=== PATIENT | male | born 1950 | race Caucasian/White ===

== ENCOUNTER → 2016-12-17 | Outpatient (CLI) | payer BC ==
[2016-12-17 10:34] LABS: Anisocytosis Slight; Basophils % (A) 0 %; CH 21.2; CHCM 28.7; Eosinophils # (A) 0.1 k/uL (0-0.7); Eosinophils % (A) 1 %; HCT 32.1 % (39.0-53.0); HDW 3.62; HGB 8.8 gm/dL (13.0-17.5); Hypochromasia Marked; Luc # (Auto) 0.14; Luc % (Auto) 3; Lymphocytes # (A) 1.6 k/uL (1.0-4.8); Lymphocytes % (A) 30 %; MCH 20.4 pg (25.0-35.0); MCV 74.1 fL (80.0-100.0); Mean Platelet Volume 6.7; Microcytosis Slight; Monocytes # (A) 0.5 k/uL (0-1.0); Monocytes % (A) 9 %; Neutrophils # (A) 3.1 k/uL (1.3-7.7); Neutrophils % (A) 58 %; Poikilocytosis Slight; RBC 4.33 m/uL (4.30-5.90); RDW 16.6 % (11.5-15.5); WBC 5.3 k/uL (3.8-10.6); WBC (Perox) 5.56
[2016-12-17 10:36] LABS: MCHC 27.5 g/dL (31.0-37.0)
[2016-12-17 11:57] LABS: ALT 25 U/L (21-72); AST 15 U/L (17-59); Alkaline Phosphatase 49 U/L (38-126); Anion Gap 10 mmol/L; Blood Urea Nitrogen 17 mg/dL (9-20); Calcium 8.9 mg/dL (8.4-10.2); Carbon Dioxide 28 mmol/L (22-30); Chloride 106 mmol/L (98-107); Glucose 89 mg/dL (74-99); Iron 27 ug/dL (49-181); Non-African American GFR(MDRD) >60 (>60 ml/min/1.73 sqM); Potassium 4.1 mmol/L (3.5-5.1); Sodium 144 mmol/L (137-145); Total Bilirubin 0.5 mg/dL (0.2-1.3); Total Protein 6.3 g/dL (6.3-8.2)
[2016-12-17 12:07] LABS: % Iron Saturation 6.6 % (20-50); Total Iron Binding Capacity 411 ug/dL (261-462)
== END | disposition home or self-care (01) ==
LOC: LABWHC1 09:33
PROVIDERS: ATTEND Internal Medicine Gastroenterology
DX: D50.8 Other iron deficiency anemias (principal); K52.89 Other specified noninfective gastroenteritis and colitis
CPT/HCPCS: 36415; 80053; 82728; 83540; 83550; 85025

== ENCOUNTER → 2017-01-24 | Outpatient (CLI) | payer BC ==
[2017-01-24 12:30] LABS: Appearance,Urine Clear (Clear); Bilirubin,Urine Negative (Negative); Glucose,Urine (UA) Negative (Negative); Ketones,Urine Negative (Negative); Leukocyte Esterase,Urine Negative (Negative); Nitrite,Urine Negative (Negative); Protein,Urine Negative (Negative); Specific Gravity,Urine 1.019 (1.001-1.035); UA Billing (MACRO vs. MICRO) CHEM; Urobilinogen,Urine <2.0 mg/dL (<2.0)
[2017-01-24 13:01] LABS: Anisocytosis Slight; Basophils % (A) 0 %; CH 21.8; CHCM 29.1; Eosinophils # (A) 0.1 k/uL (0-0.7); Eosinophils % (A) 1 %; HCT 38.4 % (39.0-53.0); HDW 3.01; HGB 10.9 gm/dL (13.0-17.5); Hypochromasia Marked; Luc # (Auto) 0.14; Luc % (Auto) 3; Lymphocytes # (A) 1.2 k/uL (1.0-4.8); Lymphocytes % (A) 22 %; MCH 21.4 pg (25.0-35.0); MCHC 28.4 g/dL (31.0-37.0); MCV 75.3 fL (80.0-100.0); Mean Platelet Volume 6.8; Microcytosis Moderate; Monocytes # (A) 0.3 k/uL (0-1.0); Monocytes % (A) 6 %; Neutrophils # (A) 3.7 k/uL (1.3-7.7); Neutrophils % (A) 68 %; RDW 18.4 % (11.5-15.5); WBC 5.5 k/uL (3.8-10.6); WBC (Perox) 5.54
[2017-01-24 13:23] LABS: ALT 25 U/L (21-72); AST 19 U/L (17-59); Alkaline Phosphatase 46 U/L (38-126); Anion Gap 11 mmol/L; Blood Urea Nitrogen 16 mg/dL (9-20); Calcium 9.2 mg/dL (8.4-10.2); Carbon Dioxide 28 mmol/L (22-30); Chloride 106 mmol/L (98-107); Cholesterol 138 mg/dL (<200); Glucose 85 mg/dL (74-99); HDL Cholesterol 59 mg/dL (40-60); Iron 20 ug/dL (49-181); Non-African American GFR(MDRD) >60 (>60 ml/min/1.73 sqM); Potassium 4.5 mmol/L (3.5-5.1); Sodium 145 mmol/L (137-145); Total Bilirubin 0.4 mg/dL (0.2-1.3); Total Protein 6.8 g/dL (6.3-8.2); Triglycerides 72 mg/dL (<150)
[2017-01-24 13:32] LABS: % Iron Saturation 4.7 % (20-50); Total Iron Binding Capacity 422 ug/dL (261-462)
[2017-01-24 14:11] LABS: Vitamin B12 595 pg/mL (239-931)
== END | disposition home or self-care (01) ==
LOC: LABWHC1 12:07
PROVIDERS: ATTEND Internal Medicine
DX: K51.90 Ulcerative colitis, unspecified, without complications (principal); D64.9 Anemia, unspecified; E78.5 Hyperlipidemia, unspecified; G62.9 Polyneuropathy, unspecified
CPT/HCPCS: 84439; 80061; 80053; 82607; 82728; 83540; 83550; 84443; 85025; 81003; 36415; G0103

== ENCOUNTER → 2017-07-04 | Outpatient (CLI) | payer SELFPAY ==
[2017-07-04 11:08] LABS: Anisocytosis Slight; Basophils % (A) 0 %; CH 29.5; Eosinophils # (A) 0.1 k/uL (0-0.7); Eosinophils % (A) 2 %; HCT 44.9 % (39.0-53.0); HDW 2.64; HGB 14.8 gm/dL (13.0-17.5); Luc # (Auto) 0.12; Luc % (Auto) 2; Lymphocytes # (A) 1.4 k/uL (1.0-4.8); Lymphocytes % (A) 23 %; MCH 28.7 pg (25.0-35.0); MCV 87.1 fL (80.0-100.0); Mean Platelet Volume 7.4; Monocytes # (A) 0.4 k/uL (0-1.0); Monocytes % (A) 6 %; Neutrophils % (A) 67 %; RBC 5.16 m/uL (4.30-5.90); RDW 16.2 % (11.5-15.5); WBC (Perox) 5.87
[2017-07-04 12:01] LABS: % Iron Saturation 19.7 % (20-50)
== END | disposition home or self-care (01) ==
LOC: LABWHC1 10:33
PROVIDERS: ATTEND Internal Medicine Gastroenterology
DX: D50.9 Iron deficiency anemia, unspecified (principal)
CPT/HCPCS: 36415; 82728; 83540; 83550; 85025

== ENCOUNTER → 2018-02-17 | Outpatient (CLI) | payer MEDICARE, OTHER ==
[2018-02-17 11:15] LABS: Basophils % (A) 0 %; Eosinophils # (A) 0.2 k/uL (0-0.7); Eosinophils % (A) 3 %; HCT 42.2 % (39.0-53.0); HGB 14.5 gm/dL (13.0-17.5); Lymphocytes # (A) 0.9 k/uL (1.0-4.8); Lymphocytes % (A) 17 %; MCH 30.2 pg (25.0-35.0); MCHC 34.3 g/dL (31.0-37.0); Mean Platelet Volume 6.8; Monocytes # (A) 0.3 k/uL (0-1.0); Monocytes % (A) 5 %; Neutrophils # (A) 3.9 k/uL (1.3-7.7); Neutrophils % (A) 72 %; Platelet Count 231 k/uL (150-450); RBC 4.79 m/uL (4.30-5.90); RDW 13.2 % (11.5-15.5); WBC 5.5 k/uL (3.8-10.6)
[2018-02-17 12:35] LABS: Erythrocyte Sedimentation Rate 8 mm/hr (0-15)
[2018-02-17 16:00] LABS: Iron Saturation 18.1 (15.00-50.00)
== END | disposition home or self-care (01) ==
LOC: LABWHC1 10:18
PROVIDERS: ATTEND Internal Medicine Gastroenterology
DX: K51.00 Ulcerative (chronic) pancolitis without complications (principal)
CPT/HCPCS: 36415; 83540; 83550; 85025; 85652; 86140

== ENCOUNTER → 2018-09-08 | Outpatient (CLI) | payer MEDICARE, OTHER ==
[2018-09-08 12:51] LABS: Basophils % (A) 0 %; Eosinophils # (A) 0.1 k/uL (0-0.7); Eosinophils % (A) 2 %; HCT 43.8 % (39.0-53.0); HGB 14.8 gm/dL (13.0-17.5); Lymphocytes # (A) 1.3 k/uL (1.0-4.8); Lymphocytes % (A) 23 %; MCH 30.7 pg (25.0-35.0); MCHC 33.8 g/dL (31.0-37.0); Mean Platelet Volume 6.9; Monocytes # (A) 0.4 k/uL (0-1.0); Monocytes % (A) 6 %; Neutrophils # (A) 3.7 k/uL (1.3-7.7); Neutrophils % (A) 66 %; Platelet Count 205 k/uL (150-450); RBC 4.81 m/uL (4.30-5.90); RDW 13.4 % (11.5-15.5); WBC 5.7 k/uL (3.8-10.6)
[2018-09-08 19:26] LABS: Iron Saturation 39.31 (15.00-50.00)
[2018-09-08 19:45] LABS: Folate, Serum 16.5 ng/mL
== END ==
LOC: LABWHC1 11:32
PROVIDERS: ATTEND Internal Medicine Gastroenterology
DX: D50.0 Iron deficiency anemia secondary to blood loss (chronic) (principal)
CPT/HCPCS: 36415; 82607; 82728; 82746; 83540; 83550; 84466; 85025

== ENCOUNTER → 2018-11-03 | Outpatient (CLI) | payer MEDICARE, OTHER ==
[2018-11-03 14:33] LABS: Basophils % (A) 0 %; Eosinophils # (A) 0.1 k/uL (0-0.7); Eosinophils % (A) 3 %; HCT 43.7 % (39.0-53.0); HGB 14.6 gm/dL (13.0-17.5); Lymphocytes # (A) 1.1 k/uL (1.0-4.8); Lymphocytes % (A) 27 %; MCH 30.6 pg (25.0-35.0); MCHC 33.4 g/dL (31.0-37.0); MCV 91.7 fL (80.0-100.0); Mean Platelet Volume 6.7; Monocytes # (A) 0.3 k/uL (0-1.0); Monocytes % (A) 6 %; Neutrophils # (A) 2.6 k/uL (1.3-7.7); Neutrophils % (A) 61 %; Platelet Count 215 k/uL (150-450); RBC 4.77 m/uL (4.30-5.90); WBC 4.2 k/uL (3.8-10.6)
[2018-11-03 18:58] LABS: Albumin 4.4 g/dL (3.80-4.90); Albumin/Globulin Ratio 2.44 (1.20-2.10); Anion Gap 6.3 mmol/L (4.00-12.00); Calcium 9.1 mg/dL (8.7-10.3); Carbon Dioxide 28.7 mmol/L (21.6-31.8); Globulin 1.8 g/dL (2.1-3.7); Potassium 4.6 mmol/L (3.5-5.5); Total Bilirubin 0.6 mg/dL (0.3-1.2); Total Protein 6.2 g/dL (6.2-8.2)
[2018-11-03 19:06] LABS: T4, Free (Free Thyroxine) 1.1 ng/dL (0.80-1.80)
== END | disposition home or self-care (01) ==
LOC: LABWHC1 12:34
PROVIDERS: ATTEND Internal Medicine
DX: Z00.00 Encounter for general adult medical examination without abnormal findings (principal); D64.9 Anemia, unspecified; E78.01 Familial hypercholesterolemia; K51.90 Ulcerative colitis, unspecified, without complications; K90.0 Celiac disease; Z12.5 Encounter for screening for malignant neoplasm of prostate
CPT/HCPCS: 84439; 80061; 80053; 84443; 85025; 36415; G0103

== ENCOUNTER 2021-10-12 16:49 | Observation (INO) | payer MEDICARE ==
[2021-10-12] MEDS ORDERED: SODIUM CHLORIDE 0.9% 500 ML 500 ML IV STA (16:59)
[2021-10-12 17:12] LABS: Glucose,Whole Blood 118 mg/dL (75-99)
[2021-10-12 17:36] LABS: Basophils % (A) 0 %; Eosinophils # (A) 0.1 k/uL (0-0.7); Eosinophils % (A) 2 %; HCT 44.7 % (39.0-53.0); HGB 14.9 gm/dL (13.0-17.5); Lymphocytes # (A) 0.8 k/uL (1.0-4.8); Lymphocytes % (A) 12 %; MCH 30.9 pg (25.0-35.0); MCHC 33.2 g/dL (31.0-37.0); Mean Platelet Volume 7.5; Monocytes # (A) 0.4 k/uL (0-1.0); Monocytes % (A) 5 %; Neutrophils # (A) 5.3 k/uL (1.3-7.7); Neutrophils % (A) 79 %; Platelet Count 216 k/uL (150-450); RBC 4.81 m/uL (4.30-5.90); RDW 12.7 % (11.5-15.5); WBC 6.7 k/uL (3.8-10.6)
--- NOTE | 2021-10-12 17:44 | CT ---
EXAMINATION TYPE: CT brain wo con for TPA DATE OF EXAM: 10/12/2021 COMPARISON: None HISTORY: Confusion. CT DLP: 1205.8 mGycm Automated exposure control for dose reduction was used. Images of the brain obtained without contrast. Ventricles have normal size. There is no mass effect nor midline shift. There is no sign of intracran ial hemorrhage. The calvarium is intact. There is normal aeration of the mastoid sinuses. IMPRESSION: Negative unenhanced head CT scan.
[2021-10-12 17:47] LABS: ALT 28 U/L (4-49); AST 29 U/L (17-59); African American GFR (CKD) >90 (>60 ml/min/1.73 sqM); Albumin 4.2 g/dL (3.5-5.0); Alkaline Phosphatase 57 U/L (38-126); Anion Gap 10 mmol/L; Blood Urea Nitrogen 17 mg/dL (9-20); Calcium 9.2 mg/dL (8.4-10.2); Carbon Dioxide 23 mmol/L (22-30); Chloride 105 mmol/L (98-107); Glucose 108 mg/dL (74-99); Non-African American GFR(CKD) 83 (>60 ml/min/1.73 sqM); Partial Thromboplastin Time 27.7 sec (22.0-30.0); Potassium 4.5 mmol/L (3.5-5.1); Prothrombin Time 10.5 sec (9.0-12.0); Sodium 138 mmol/L (137-145); Total Bilirubin 0.4 mg/dL (0.2-1.3); Total Protein 6.9 g/dL (6.3-8.2)
[2021-10-12] MEDS ORDERED: ASPIRIN 325 MG TAB PO STA (17:52)
[2021-10-12] MEDS ORDERED: SODIUM CHLORIDE 0.9% 500 ML 500 ML IV ONE (17:52)
--- NOTE | 2021-10-12 17:52 | ED ---
General Adult HPI - General Chief complaint: Neuro Symptoms/Deficit Stated complaint: Neurosymptoms Time Seen by Provider: 10/12/21 16:59 Source: patient, RN notes reviewed, old records reviewed Mode of arrival: ambulatory Limitations: no limitations - History of Present Illness Initial comments: 71-year-old male, history is limited. Patient was brought in by a friend after he was found to be acutely confused. He has repetitive speech. Patient was brought through walk in triage. The exact onset is unknown but he was felt to be normal prior to 1430. Patient denies complaints, he will answer questions appropriately but then begins to immediately have repetitive questioning. No history of drugs or alcohol. - Related Data Home Medications Medication Instructions Recorded Confirmed No Known Home Medications 10/12/21 10/12/21 Allergies Allergy/AdvReac Type Severity Reaction Status Date / Time gluten Allergy Rash/Hives/ Verified 10/12/21 18:52 Swelling wheat Allergy Rash/Hives/ Verified 10/12/21 18:52 Swelling Review of Systems ROS Statement: Those systems with pertinent positive or pertinent negative responses have been documented in the HPI. ROS Other: All systems not noted in ROS Statement are negative. Past Medical History Additional Past Medical History / Comment(s): colitis, diverticulosis History of Any Multi-Drug Resistant Organisms: None Reported Past Surgical History: Orthopedic Surgery Past Psychological History: No Psychological Hx Reported Smoking Status: Never smoker Past Alcohol Use History: None Reported Past Drug Use History: None Reported General Exam Limitations: no limitations General appearance: alert, in no apparent distress Head exam: Present: atraumatic, normocephalic Eye exam: Present: normal appearance, PERRL ENT exam: Present: normal exam, mucous membranes moist Neck exam: Present: normal inspection. Absent: tenderness, meningismus Respiratory exam: Present: normal lung sounds bilaterally, respiratory distress Cardiovascular Exam: Present: normal rhythm, bradycardia Extremities exam: Present: normal inspection Neurological exam: Present: alert, oriented X3 (He is oriented but slow to respond.), CN II-XII intact, motor sensory deficit (Numbness to the right side of the face, no motor deficit. Patient's speech is fluid but he has repetitive questioning and is unaware why he is in the emergency department) Psychiatric exam: Present: normal affect, normal mood Skin exam: Present: warm, dry, intact. Absent: cyanosis, diaphoretic Course Vital Signs 10/12/21 10/12/21 10/12/21 16:52 17:00 17:15 Temperature 98.7 F Pulse Rate 55 L 49 L 51 L Respiratory 20 18 18 Rate Blood Pressure 150/89 163/94 152/91 O2 Sat by Pulse 99 97 97 Oximetry 10/12/21 10/12/21 17:30 18:47 Temperature Pulse Rate 49 L 56 L Respiratory 18 18 Rate Blood Pressure 139/82 148/92 O2 Sat by Pulse 98 98 Oximetry - Reevaluation(s) Reevaluation #1: 10/12/21 4997 initial NIH is 24 sensory deficit right side of the face and mild confusion. I did discuss case with Dr. Wan, will review the images, no TPA at this time. EKG Findings - EKG Comments: EKG Findings:: Sinus bradycardia rate of 49, MT interval 152, QRS duration 82, QTC 390, no ST segment elevation Medical Decision Making - Medical Decision Making 71-year-old male who had presented with acute onset confusion, repetitive questioning. Patient had an initial NIH of 2. He has stable vitals. Head CT was performed which is negative for intracranial hemorrhage or mass effect. CT angiography was negative for acute occlusion or stenosis. Patient has normal CBC, normal CMP. He does improve while in the emergency department. He is amnestic to the events preceding. He's given IV fluids and aspirin in the emergency department he will be admitted for stroke rule out. Case discussed with Tonya mccann [facility] - Lab Data Result diagrams: 10/12/21 17:27 10/12/21 17:27 Lab Results 10/12/21 10/12/21 10/12/21 Range/Units 17:11 17:27 17:27 WBC 6.7 (3.8-10.6) k/uL RBC 4.81 (4.30-5.90) m/uL Hgb 14.9 (13.0-17.5) gm/dL Hct 44.7 (39.0-53.0) % MCV 93.0 (80.0-100.0) fL MCH 30.9 (25.0-35.0) pg MCHC 33.2 (31.0-37.0) g/dL RDW 12.7 (11.5-15.5) % Plt Count 216 (150-450) k/uL MPV 7.5 Neutrophils % 79 % Lymphocytes % 12 % Monocytes % 5 % Eosinophils % 2 % Basophils % 0 % Neutrophils # 5.3 (1.3-7.7) k/uL Lymphocytes # 0.8 L (1.0-4.8) k/uL Monocytes # 0.4 (0-1.0) k/uL Eosinophils # 0.1 (0-0.7) k/uL Basophils # 0.0 (0-0.2) k/uL PT 10.5 (9.0-12.0) sec INR 1.0 (<1.2) APTT 27.7 (22.0-30.0) sec Sodium (137-145) mmol/L Potassium (3.5-5.1) mmol/L Chloride (98-107) mmol/L Carbon Dioxide (22-30) mmol/L Anion Gap mmol/L BUN (9-20) mg/dL Creatinine (0.66-1.25) mg/dL Est GFR (CKD-EPI)AfAm (>60 ml/min/1.73 sqM) Est GFR (CKD-EPI)NonAf (>60 ml/min/1.73 sqM) Glucose (74-99) mg/dL POC Glucose (mg/dL) 118 H (75-99) mg/dL POC Glu Project Safety Manager ID Pooja Sosa Calcium (8.4-10.2) mg/dL Total Bilirubin (0.2-1.3) mg/dL AST (17-59) U/L ALT (4-49) U/L Alkaline Phosphatase (38-126) U/L Troponin I (0.000-0.034) ng/mL Total Protein (6.3-8.2) g/dL Albumin (3.5-5.0) g/dL 10/12/21 10/12/21 Range/Units 17:27 17:27 WBC (3.8-10.6) k/uL RBC (4.30-5.90) m/uL Hgb (13.0-17.5) gm/dL Hct (39.0-53.0) % MCV (80.0-100.0) fL MCH (25.0-35.0) pg MCHC (31.0-37.0) g/dL RDW (11.5-15.5) % Plt Count (150-450) k/uL MPV Neutrophils % % Lymphocytes % % Monocytes % % Eosinophils % % Basophils % % Neutrophils # (1.3-7.7) k/uL Lymphocytes # (1.0-4.8) k/uL Monocytes # (0-1.0) k/uL Eosinophils # (0-0.7) k/uL Basophils # (0-0.2) k/uL PT (9.0-12.0) sec INR (<1.2) APTT (22.0-30.0) sec Sodium 138 (137-145) mmol/L Potassium 4.5 (3.5-5.1) mmol/L Chloride 105 (98-107) mmol/L Carbon Dioxide 23 (22-30) mmol/L Anion Gap 10 mmol/L BUN 17 (9-20) mg/dL Creatinine 0.94 (0.66-1.25) mg/dL Est GFR (CKD-EPI)AfAm >90 (>60 ml/min/1.73 sqM) Est GFR (CKD-EPI)NonAf 83 (>60 ml/min/1.73 sqM) Glucose 108 H (74-99) mg/dL POC Glucose (mg/dL) (75-99) mg/dL POC Glu Project Safety Manager ID Calcium 9.2 (8.4-10.2) mg/dL Total Bilirubin 0.4 (0.2-1.3) mg/dL AST 29 (17-59) U/L ALT 28 (4-49) U/L Alkaline Phosphatase 57 (38-126) U/L Troponin I <0.012 (0.000-0.034) ng/mL Total Protein 6.9 (6.3-8.2) g/dL Albumin 4.2 (3.5-5.0) g/dL Critical Care Time Critical Care Time: Yes Total Critical Care Time: 35 Disposition Clinical Impression: Transient cerebral ischemia Disposition: ADMITTED IP TO THIS HOSP Condition: Stable Is patient prescribed a controlled substance at d/c from ED?: No Referrals: Radha Tong MD [Primary Care Provider] - 1-2 days Decision to Admit Reason: Admit from EC Decision Date: 10/12/21 Decision Time: 18:54
--- NOTE | 2021-10-12 17:58 | CT ---
EXAMINATION TYPE: CT angio head neck DATE OF EXAM: 10/12/2021 COMPARISON: None HISTORY: confusion CT DLP: 753 mGycm Automated exposure control for dose reduction was used. CONTRAST: Performed with IV Contrast, patient injected with 65 mL of Isovue 370. Images obtained from the aortic arch to the vertex of the brain with IV contrast. There are 3-D post processed images. There is normal branching pattern of the great vessels on the aortic arch. There is bilateral arteria l flow in the subclavian arteries. There is arterial flow in the common internal and external carotid arteries bilaterally. There is wide patency of the carotid artery bifurcations. There is arterial fl ow in both vertebral arteries. There is arterial flow in the vertebrobasilar artery system. There is no evidence of carotid or vertebral artery aneurysm or dissection. There is arterial flow in the anterior middle and posterior cerebral arteries. There is no mass effec t. There is no evidence of intracranial arterial stenosis. There is no evidence of intracranial aneur ysm or neovascularity. There is normal enhancement of the venous sinuses. IMPRESSION: Negative CT angiogram of the neck. Negative CT angiogram of the brain.
--- NOTE | 2021-10-12 18:39 | XR ---
EXAMINATION TYPE: XR chest 2V DATE OF EXAM: 10/12/2021 COMPARISON: 02/13/2021 HISTORY: Altered mental status TECHNIQUE: 2 views FINDINGS: Heart and mediastinum are normal. Lungs are clear. Diaphragm is normal. Bony thorax is inta ct. There are chest leads. IMPRESSION: Normal chest. No change.
--- NOTE | 2021-10-12 19:36 | US ---
EXAMINATION TYPE: US carotid duplex BILAT DATE OF EXAM: 10/12/2021 COMPARISON: CTA same day CLINICAL HISTORY: Stenosis. Altered mental status EXAM MEASUREMENTS: RIGHT: Peak Systolic Velocity (PSV) cm/sec ----- Right CCA: 65.8 ----- Right ICA: 83.4 ----- Right ECA: 111.2 ICA/CCA ratio: 1.3 RIGHT: End Diastole cm/sec ----- Right CCA: 16.4 ----- Right ICA: 15.3 ----- Right ECA: 14.1 LEFT: Peak Systolic Velocity (PSV) cm/sec ----- Left CCA: 74.4 ----- Left ICA: 87.9 ----- Left ECA: 116.1 ICA/CCA ratio: 1.2 LEFT: End Diastole cm/sec ----- Left CCA: 17.1 ----- Left ICA: 19.3 ----- Left ECA: 14.4 VERTEBRALS (direction of flow): Right Vertebral: Antegrade Left Vertebral: Antegrade Rhythm: Normal No significant stenosis seen IMPRESSION: There is antegrade flow in the vertebral arteries. The images and measurements suggest less than 10% stenosis in both internal carotid arteries. Criteria for Assigning % of Stenosis / Diameter reduction (Estimation based on the indirect measurements of the internal carotid artery velocities (ICA PSV). 1. Normal (no stenosis)=ICA PSV < 125 cm/s: ratio < 2.0: ICA EDV<40 cm/s. 2. Less than 50% stenosis=ICA PSV < 125 cm/s: ratio < 2.0: ICA EDV<40 cm/s. 3. 50 to 69% stenosis=ICA PSV of 125 to 230 cm/s: ration 2.0 ? 4.0: ICA EDV 40-100 cm/s. 4. Greater than 70% stenosis to near occlusion= ICA PSV > 230 cm/s: ratio > 4.0: ICA EDV > 100 cm/s. 5. Near occlusion= ICA PSV velocities may be low or undetectable: variable ratio and ICA EDV. 6. Total occlusion=unable to detect flow.
[2021-10-12] MEDS ORDERED: ATORVASTATIN 80 MG TAB PO SCH (21:00)
[2021-10-13] MEDS: SODIUM CHLORIDE 0.9% 1,000 ML IV SCH ×3 (01:27→15:44)
[2021-10-13] MEDS ORDERED: ASPIRIN 325 MG TAB PO SCH (09:00)
[2021-10-13 09:43] LABS: Chol/HDL Ratio 3.73 Ratio; LDL Cholesterol,Calculated 89.8 mg/dL (0.0-131.0)
--- NOTE | 2021-10-13 11:37 | P.CNNES ---
History of Present Illness Consult date: 10/13/21 Requesting physician: Diogo Pryor Reason for Consult: tia History of Present Illness: This is a 71-year-old gentleman with medical history of ulcerative colitis who presented to the emergency department on 10/12/2021 because of confusion. Some of the history is obtained from medical record. She stated that yesterday he was talking to a friend over the phone and his friend told him that the he sounded off and seemed confused. Then the friend that came over and the brought the patient to the emergency department. Patient states that he does not recall what transpired that yesterday all he remembers is he was talking to a friend then the next thing that he remembers is a being in the emergency department. He does not recall if he had any the slurring the speech, headaches, any focal weakness or numbness. Currently the patient feels he is back to baseline. He denies of any headaches, nausea, vomiting. He denies any history of stroke or seizure or TIA in the past. Denies being under any stress recently. She denies of any tobacco use, alcohol use or any illicit drug use. Per ED documentation, the patient the was answered questions appropriately but began to immediately have repetitive questioning. She is not on any at antiplatelets or statins. He states that the in the past his hemoglobin was as low as 8.0. As stated above patient denies any history of seizures. He said that he is ad opted and does not know about family history of seizure. some of the workup in the hospital consisted of: Initial vital signs: Blood pressure of 150/89, heart rate of 55, respiratory of 20, temperature of 98.7 Fahrenheit oral and pulse ox of 99% room air. CBC with differential is unremarkable. Initial POC glucose is 118, sodium is 138, creatinine is 0.94, AST of 29, ALT of 28, calcium is 9.2. Lipid panel is a triglyceride 122, cholesterol 156, LDL of 89 and HDL 41. Marquez virus PCR was not detected. CT of the head is reported as negative unenhanced head CT scan. CT angiography of the head and neck was reported as negative. Carotid duplex was reported as there is antegrade flow in the vertebral arteries. Images and measurements suggest less than 10% stenosis in both internal carotid arteries. The patient had acute onset confusion and repetitive questioning. The ED the patient had NIH of a 2 (sensory deficit on right side face and mild confusion). Stroke code was activated and the ED team spoke with the stroke team. Patient symptoms resolved and no IV TPA as as a result. Review of Systems Review of system: The 12 point system was reviewed and apparent positive and negative per HPI. Past Medical History Additional Past Medical History / Comment(s): colitis, diverticulosis History of Any Multi-Drug Resistant Organisms: None Reported Past Surgical History: Orthopedic Surgery Past Anesthesia/Blood Transfusion Reactions: No Reported Reaction Past Psychological History: No Psychological Hx Reported Smoking Status: Never smoker Past Alcohol Use History: None Reported Past Drug Use History: None Reported Medications and Allergies Home Medications Medication Instructions Recorded Confirmed Type No Known Home Medications 10/12/21 10/12/21 History Allergies Allergy/AdvReac Type Severity Reaction Status Date / Time gluten Allergy Rash/Hives/ Verified 10/12/21 18:52 Swelling wheat Allergy Rash/Hives/ Verified 10/12/21 18:52 Swelling Physical Examination - Vital Signs Vital Signs: Vital Signs Temp Pulse Pulse Resp BP BP Pulse Ox 10/13/21 07:00 97.5 F L 51 L 16 126/69 96 10/13/21 02:00 97.5 F L 55 L 18 156/91 98 10/12/21 18:47 56 L 18 148/92 98 10/12/21 17:30 49 L 18 139/82 98 10/12/21 17:15 51 L 18 152/91 97 10/12/21 17:00 49 L 18 163/94 97 10/12/21 16:52 98.7 F 55 L 20 150/89 99 Intake and Output 10/12/21 10/13/21 10/13/21 22:59 06:59 14:59 Intake Total 354 Balance 354 Intake: Oral 354 Other: # Voids 1 Weight 102.512 kg 102.512 kg GENERAL: The patient is lying in bed and is not in acute distress. CHEST: The heart rate is regular rate rhythm. No murmurs to auscultation. No carotid bruit bilaterally. LUNG: Clear to auscultation bilaterally no wheezing noted throughout. Not labored breathing. ABDOMEN/GI: Bowel sounds present in all 4 quadrants. No tenderness to palpation throughout. NEUROLOGICAL: Higher mental function: The patient is awake, alert, oriented to self, place and time. Able to name objects (pen, watch, glasses). Patient is following comm ands. No aphasia and no neglect. Cranial nerves: The pupils are round, equal and reactive to light and accommodation. Visual campos are full to confrontation throughout. Extraocular movement is intact no nystagmus is noted. Facial sensation is normal to touch throughout. The facial strength is normal throughout. Hearing is normal bilaterally to hand rub. Tongue is midline and moved [id number] without any difficulty. No dysarthria is noted. Shoulder shrug is normal bilaterally. Motor: Gait is normal with normal arm swings. The strength is 5 over 5 throughout. Normal tone and bulk. Cerebellum: Normal finger to nose heel to aguirre bilaterally. Sensation: Sensation is normal to touch throughout. Reflexes (right/left): 2+ throughout. Plantars are downgoing bilaterally. Results - Laboratory Findings CBC and BMP: 10/12/21 17:27 10/12/21 17:27 Abnormal Lab Findings: Abnormal Labs 10/12/21 10/12/21 10/12/21 17:11 17: 17:27 Lymphocytes # 0.8 L Glucose 108 H POC Glucose (mg/dL) 118 H Assessment and Plan Assessment: Transient episode of confusion and per ED right facial numbness. Possible TIA (but not definitive. Especially since the patient does not recall what transpired) History of ulcerative colitis Plan: * In the ED the patient was given aspirin 325 once and was started on aspirin 325 daily and I decreased especially with his history of Ulcerative Colitis and history anemia (as low as 8.0). Will not start dual antiplatelets because of his history of anemia. I will decrease the Lipitor from 80mg to 20 mg qhs. * Ordered MRI Brain w/ and w/o Urgently * 2-D echo is ordered and is pending * PT, OT and WATERMELON INSPECTOR are consulted. * Ordered TSH level, vitamin B12, folate. * Continue neuro checks * Patient is on cardiac monitoring * Will consider Routine EEG as outpatient and can be done as outpatient (if still patient is here by Friday then will proceed as inpatient). * We'll defer the rest of medical management to the primary team. * Upon discharge the patient needs to follow-up with a neurologist as an outpatient within 1-2 weeks. * For DVT prophylaxis start the patient on the subcu heparin 5000 units every 12 hours. The plan is discussed with the patient and his nurse. Thank you for the consultation. Darrell Basha, M.D. Neuro-hospitalist Time with Patient: Greater than 30
--- NOTE | 2021-10-13 13:51 | ECHOF ---
Referral Reason:Thrombus MEASUREMENTS -------- HEIGHT: 182.9 cm WEIGHT: 102.5 kg BP: IVSd: 1.3 cm (0.6 - 1.1) LVIDd: 3.3 cm (3.9 - 5.3) LVPWd: 1.6 cm (0.6 - 1.1) EDV(Teich): 43 ml IVSs: 1.7 cm LVIDs: 2.2 cm LVPWs: 1.7 cm %IVS Thck: 26 % ESV(Teich): 17 ml EF(Teich): 60 % %FS: 31 % SV(Teich): 26 ml Ao Diam: 3.7 cm (2.0 - 3.7) LA Diam: 2.8 cm (2.7 - 3.8) AV Cusp: 2.3 cm (1.5 - 2.6) EPSS: 0.9 cm MV E Mark: 0.51 m/s MV DecT: 326 ms MV Dec [place]: 1.6 m/s MV A Mark: 0.65 m/s MV E/A Ratio: 0.78 MV PHT: 94 ms MR Vmax: 1.15 m/s MR maxP.33 mmHg AV Vmax: 1.33 m/s AV maxP.04 mmHg TR Vmax: 1.13 m/s TR maxP.09 mmHg RAP: 5.00 mmHg RVSP: 10.09 mmHg MV EF SLOPE: 89.33 mm/s (70 - 150) MV EXCURSION: 14.43 mm (> 18.000) FINDINGS -------- This was a technically difficult study with suboptimal views. The left ventricular size is normal. There is moderate concentric left ventricular hypertrophy. O verall left ventricular systolic function is normal with, an EF between 55 - 60 %. The right ventricle is normal in size. The left atrial size is normal. The right atrial size is normal. Lumason used The aortic valve is trileaflet and appears structurally normal. The mitral valve is normal. There is trace mitral regurgitation. The tricuspid valve appears structurally normal. Trace tricuspid regurgitation present. Right gurinder tricular systolic pressure is normal at < 35 mmHg. There is no pulmonic regurgitation present. The aortic root size is normal. IVC Not well visulized. There is no pericardial effusion. CONCLUSIONS -------- 1. The left ventricular size is normal. 2. There is moderate concentric left ventricular hypertrophy. 3. Overall left ventricular systolic function is normal with, an EF between 55 - 60 %. 4. There is trace mitral regurgitation. 5. Trace tricuspid regurgitation present. 6. There is no pericardial effusion. BOX BLANK MACHINE OPERATOR: Susie Ovalle RDCS
[2021-10-13 20:04] VITALS: RESP 18
[2021-10-13] MEDS ORDERED: ATORVASTATIN 20 MG TAB PO SCH (21:00)
[2021-10-13] MEDS ORDERED: ATORVASTATIN 40 MG TAB PO SCH (21:00)
[2021-10-13] MEDS: HEPARIN SODIUM,PORCINE/PF 5,000 UNIT/0.5 ML SYRINGE SQ SCH (21:21)
[2021-10-14] MEDS: SODIUM CHLORIDE 0.9% 1,000 ML IV SCH ×3 (01:00→12:06)
[2021-10-14] MEDS: HEPARIN SODIUM,PORCINE/PF 5,000 UNIT/0.5 ML SYRINGE SQ SCH (08:00)
[2021-10-14 08:49] VITALS: BP 149/81; PULSE 52; TEMP 97.4
[2021-10-14] MEDS ORDERED: ASPIRIN 81 MG PO SCH (09:00)
--- NOTE | 2021-10-14 11:33 | P.PN ---
Subjective Progress Note Date: 10/14/21 The patient is seen at bedside and denies any neurological problems. He states he is doing well. Objective - Vital Signs Vital signs: Vital Signs Temp 97.4 F L 10/14/21 07:00 Pulse 52 L 10/14/21 07:00 Resp 18 10/14/21 07:00 BP 149/81 10/14/21 07:00 Pulse Ox 99 10/14/21 07:00 Intake & Output 10/13/21 10/14/21 10/14/21 18:59 06:59 18:59 Intake Total 1372 450 Balance 1372 450 Intake: Intake, IV Titration 900 450 Amount Sodium Chloride 0.9% 1, 900 450 000 ml @ 100 mls/hr IV . Q10H [facility] Rx#:[id number] Oral 472 Other: # Voids 4 - Exam GENERAL: The patient is lying in bed and is not in acute distress. NEUROLOGICAL: Higher mental function: The patient is awake, alert, oriented to self, place and time. Able to name objects (pen, watch, glasses). Patient is following commands. No aphasia and no neglect. Cranial nerves: The pupils are round, equal and reactive to light and accommodation. Visual campos are full to confrontation throughout. Extraocular movement is intact no nystagmus is noted. Facial sensation is normal to touch throughout. The facial strength is normal throughout. Hearing is normal bilaterally to hand rub. Tongue is midline and moved [id number] without any difficulty. No dysarthria is noted. Shoulder shrug is normal bilaterally. Motor: Gait is normal with normal arm swings. The strength is 5 over 5 throughout. Normal tone and bulk. Cerebellum: Normal finger to nose heel to aguirre bilaterally. Sensation: Sensation is normal to touch throughout. Reflexes (right/left): 2+ throughout. Plantars are downgoing bilaterally. WORK-UP: Lipid panel is a triglyceride 122, cholesterol 156, LDL of 89 and HDL 41. Marquez virus PCR was not detected. CT of the head is reported as negative unenhanced head CT scan. CT angiography of the head and neck was reported as negative. Carotid duplex was reported as there is antegrade flow in the vertebral art eries. Images and measurements suggest less than 10% stenosis in both internal carotid arteries. 2D echo: Moderate concentrict left ventricular hypertrophy. EF of 55-60%. The left atrial size is normal. - Labs CBC & Chem 7: 10/12/21 17:27 10/12/21 17:27 Assessment and Plan Assessment: Transient episode of confusion and per ED right facial numbness. Possible TIA (but not definitive. Especially since the patient does not recall what transpired) History of ulcerative colitis Plan: * Continue ASA 81mg daily. Will avoid higher dose of ASA or dual antiplatelets because of his history of Ulcerative Colitis and history anemia (as low as 8.0). Continue Lipitor 20 mg qhs. * Pending MRI Brain w/ and w/o Urgently * PT, OT and BIZTALK ADMINISTRATOR are consulted. * TSH level, vitamin B12, folate are pending. * Continue neuro checks * Patient is on cardiac monitoring * Will consider Routine EEG as outpatient and can be done as outpatient (if still patient is here by Friday then will proceed as inpatient). * We'll defer the rest of medical management to the primary team. * Upon discharge the patient needs to follow-up with a neurologist as an outpatient within 1-2 weeks. * For DVT prophylaxis on the subcu heparin 5000 units every 12 hours. Patient wants to go home and get those test as outpatient. Therefore ordered paper script of MRI Brain and routine EEG and handed scripts to the nurse. I wi ll give another copy of routine EEG script to our mri technician to coordinate it. Patient was notified to follow-up with a neurologist and his PCP within 1-2 weeks. The plan is discussed with the patient and his nurse. Patient is clear from neurological perspective. Darrell Joyce M.D. Neuro-hospitalist Time with Patient: Less than 30
--- NOTE | 2021-10-14 16:49 | P.HPIM ---
History of Present Illness H&P Date: 10/13/21 Chief Complaint: Altered mental status Patient is a 71-year-old male without significant past medical history presents to ER due to altered mental status. Patient was brought to the hospital by his friend after he was found acutely confused. Patient was talking to his pain over the phone and he was having a repetitive speech. Onset of symptoms around 1430. Otherwise patient denied any chest pain. No palpitations. No dizziness or lightheadedness. No slurred speech. No focal weakness. No bowel or bladder incontinence. No seizure activity noted. Denied other complaints. Patient is back to his baseline in the ER. Laboratory showed WBC 6.7 him being 14.9 and platelets 216, sodium 138 potassium 4.5 chloride 105 bicarb is 23 BUN 17 and creatinine 0.94 and blood sugar is 108 Liver enzymes are not elevated troponin 1 negative and LDL is 89.8 COVID-19 PCR not detected. Review of Systems Constitutional: Patient denies any fever or chills . No generalized weakness or weight loss. Abdomen: Patient denied nausea vomiting and diarrhea and abdominal pain. Cardiovascular: Patient denies any chest pain or short of breath no palpitations. Respiratory: patient denied any cough is from production. No shortness of breath Neurologic: Patient denied any numbness or tingling headache. Musculoskeletal: Patient denies any complaints of joint swelling or deformity. Skin: Negative Psychiatric: Negative Endocrine: No heat or cold intolerance. No recent weight gain. Genitourinary: No dysuria or hematuria. All other 14 point ROS negative except the above Past Medical History Additional Past Medical History / Comment(s): colitis, diverticulosis History of Any Multi-Drug Resistant Organisms: None Reported Past Surgical History: Orthopedic Surgery Past Anesthesia/Blood Transfusion Reactions: No Reported Reaction Past Psychological History: No Psychological Hx Reported Smoking Status: Never smoker Past Alcohol Use History: None Reported Past Drug Use History: None Reported Medications and Allergies Home Medications Medication Instructions Recorded Confirmed Type Aspirin 81 mg PO DAILY #30 tab 10/14/21 Rx Atorvastatin [Lipitor] 20 mg PO HS #30 tab 10/14/21 Rx Allergies Allergy/AdvReac Type Severity Reaction Status Date / Time gluten Allergy Rash/Hives/ Verified 10/12/21 18:52 Swelling wheat Allergy Rash/Hives/ Verified 10/12/21 18:52 Swelling Physical Exam Vitals: Vital Signs Temp Pulse Resp BP Pulse Ox 10/14/21 07:00 97.4 F L 52 L 18 149/81 99 10/14/21 01:59 97.7 F 48 L 18 119/66 96 10/13/21 20:04 97.6 F 49 L 18 122/72 97 10/13/21 19:59 18 10/13/21 15:00 98.2 F 62 20 140/68 95 Intake and Output 10/13/21 10/14/21 10/14/21 22:59 06:59 14:59 Intake Total 450 480 Balance 450 480 Intake: Intake, IV Titration 450 Amount Sodium Chloride 0.9% 1, 450 000 ml @ 100 mls/hr IV . Q10H [facility] Rx#:[id number] Oral 480 Other: # Voids 2 4 PHYSICAL EXAMINATION: Patient is lying in the bed comfortably, no acute distress, awake alert and oriented.. HEENT: Normocephalic. Neck is supple. Pupils reactive. Nostrils clear. Oral cavity is moist. Neck reveals no JVD, carotid bruits, or thyromegaly. CHEST EXAMINATION: Trachea is central. Symmetrical expansion. Lung campos clear to auscultation and percussion. CARDIAC: Normal S1, S2 with no gallops. No murmurs ABDOMEN: Soft. Bowel sounds normal. No organomegaly. No abdominal bruits. Extremities: reveal no edema. No clubbing or cyanosis Neurologically awake, alert, oriented x3 with well-coordinated movements. No focal deficits noted Skin: No rash or skin lesions. Psychiatric: Coperative. Nonsuicidal Musculoskeletal: No joint swelling or deformity. Normal range of motion. Results CBC & Chem 7: 10/12/21 17:27 10/12/21 17:27 Thrombosis Risk Factor Assmnt - DVT/VTE Prophylaxis DVT/VTE Prophylaxis: Pharmacologic Prophylaxis ordered - Choose All That Apply Any of the Below Risk Factors Present?: No Each Risk Factor Represents 2 Points: Age 61-74 years Other congenital or acquired thrombophilia - If yes, enter type in comment: No Thrombosis Risk Factor Assessment Total Risk Factor Score: 2 Thrombosis Risk Factor Assessment Level: Low Risk Assessment and Plan Assessment: Acute transient altered mental status with repetitive speech.. Possible TIA. Right facial numbness resolved now. History of ulcerative colitis currently not on any medications Plan: Patient will be be continued on telemetry monitoring. Continue with neuro checks. Neurologic workup including MRI of the brain, 2-D echocardiogram, TSH B12 and folate levels was ordered. A1c was ordered. Continue to follow closely. Neurology was consulted.
== END 2021-10-14 14:40 | disposition home or self-care (01) ==
LOC: EC 16:49 → 1SOBS 18:50 → 6NMEDSUR 20:48
PROVIDERS: ADMIT Hospitalist; ATTEND Hospitalist
DX: R41.3 Other amnesia (principal); R20.0 Anesthesia of skin; K51.90 Ulcerative colitis, unspecified, without complications; R41.0 Disorientation, unspecified; K57.90 Diverticulosis of intestine, part unspecified, without perforation or abscess without bleeding; R00.0 Tachycardia, unspecified; Z20.822 Contact with and (suspected) exposure to COVID-19; Z79.82 Long term (current) use of aspirin; Z79.899 Other long term (current) drug therapy; Z91.018 Allergy to other foods
CPT/HCPCS: 96360; 96361 ×2; 96372 ×2; 99291; 36415; 93005; 97161; 80061; 80053; 84443; 82607; 82746; 84484; 85025; 85610; 85730; 83036; 87635; 71046; 93880; 70496; 70450; 70498; G0378 ×4; C8929; Q9950; Q9967; J1644 ×2; 93306

== ENCOUNTER → 2024-09-13 | Outpatient (CLI) | payer MEDICARE ==
--- NOTE | 2024-09-13 10:03 | CT ---
EXAMINATION TYPE: CT iac wo con CT DLP: 150 mGycm, Automated exposure control for dose reduction was used. DATE OF EXAM: 09/13/2024 9:44 AM INDICATION: Patient age: Male; 74 years old; Reason for study: H93.19 TINNITUS UNSPECIFIE EAR H91.90 HEARING LOSS; [facility]. COMPARISON: 10/12/2021. TECHNIQUE: Multiple thin axial images were obtained through the temporal bones and internal auditory canals. Additional coronal reformatted images were obtained. No IV contrast was utilized. CT Contrast: mL of , none. FINDINGS: Right Temporal Bone: External Ear: The external auditory canal is unremarkable, The tympanic membrane is present and unrem arkable. Middle Ear: The ossicles demonstrate a normal appearance. Prussak's space is clear and the scutum i s intact. There is no evidence of osseous erosion and the tegmen tympani is intact. Inner Ear: Cochlea, vestibule and semi circular canals are unremarkable. No evidence of carotid amina l dehiscence. Two and a half turns of the cochlea are identified. The vestibular aqueduct is not enl arged. Mastoid Air Cells: The mastoid air cells are clear. The tegmen mastoideum is intact. The aditus ad an trum is clear. Internal Auditory Canal: The internal auditory canal is unremarkable. Left Temporal Bone: External Ear: The external auditory canal is unremarkable, The tympanic membrane is present and unrem arkable. Middle Ear: The ossicles demonstrate a normal appearance. Prussak's space is clear and the scutum i s intact. There is no evidence of osseous erosion and the tegmen tympani is intact. Inner Ear: Cochlea, vestibule and semi circular canals are unremarkable. No evidence of carotid amina l dehiscence. Two and a half turns of the cochlea are identified. The vestibular aqueduct is not enl arged. Mastoid Air Cells: The mastoid air cells are clear. The tegmen mastoideum is intact. The aditus ad an trum is clear. Internal Auditory Canal: The internal auditory canal is unremarkable. Other: Mild paranasal sinus mucosal thickening. IMPRESSION: Normal internal auditory canal study. [facility], Workstation: 3, 09/13/2024 10:01 AM
== END ==
LOC: RADCTMAIN 09:20
PROVIDERS: ATTEND Otolaryngology
DX: H93.19 Tinnitus, unspecified ear (principal); H91.90 Unspecified hearing loss, unspecified ear
CPT/HCPCS: 70480